=== PATIENT | female | born 1995 | race African-American/Black ===

== ENCOUNTER 2019-10-06 19:37 | Emergency (ER) | payer OTHER ==
[2019-10-06] MEDS ORDERED: DIPHENHYDRAMINE HCL 50 MG/ML VIAL IV ONE (20:23)
[2019-10-06] MEDS ORDERED: METOCLOPRAMIDE HCL INJ/PF 10 MG/2 ML SDV IV ONE (20:23)
--- NOTE | 2019-10-06 20:26 | ER Document Report ---
ED Medical Screen (RME) - General Chief Complaint: Nausea/Vomiting/Diarrhea Stated Complaint: VOMITING-13 WEEKS PREG Time Seen by Provider: 10/06/19 20:19 Mode of Arrival: Ambulatory Information source: Patient Notes: 23-year-old female presented to ED for complaint of nausea and vomiting since she was 5 or 6 weeks . She states she is 13 weeks . She states she been to her doctor multiple times and they have never given anything for the nausea and vomiting. She states she is in the area so she came to the emergency room because she has not been able to keep any food or fluid down for the last 4 days. 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 She states she is 3 para 2. She states she does live in [place]. I have greeted and performed a rapid initial assessment of this patient. A comprehensive ED assessment and evaluation of the patient, analysis of test results and completion of medical decision making process will be conducted by an additional ED providers. - Related Data Allergies/Adverse Reactions: No Known Allergies Allergy (Unverified 10/06/19 20:22) Physical Exam - Vital signs Vitals: Temp Pulse Resp BP Pulse Ox 98.6 F 70 16 123/58 L 100 10/06/19 19:50 10/06/19 19:50 10/06/19 19:50 10/06/19 19:50 10/06/19 19:50 Course - Vital Signs Vital signs: Temp Pulse Resp BP Pulse Ox 98.7 F 70 16 123/58 L 100 10/06/19 20:18 10/06/19 19:50 10/06/19 19:50 10/06/19 19:50 10/06/19 19:50
[2019-10-06 20:43] LABS: ABSOLUTE EOSINOPHILS # (AUTO) 0.1 10^3/uL (0.0-0.6); ABSOLUTE LYMPHOCYTES (AUTO) 2.1 10^3/uL (0.5-4.7); ABSOLUTE MONOCYTES (AUTO) 0.6 10^3/uL (0.1-1.4); ABSOLUTE NEUT (AUTO) 4.9 10^3/uL (1.7-8.2); BASOPHILS % (AUTO) 0.6 % (0-2); EOSINOPHILS % (AUTO) 1.8 % (0-6); HEMATOCRIT 34.4 % (36.0-47.0); HEMOGLOBIN 12.3 g/dL (12.0-15.5); LYMPHOCYTES % (AUTO) 26.5 % (13-45); MEAN CORPUSCULAR HEMOGLOBIN 32.2 pg (27.0-33.4); MEAN CORPUSCULAR HGB CONC 35.7 g/dL (32.0-36.0); MEAN CORPUSCULAR VOLUME 90 fl (80-97); MONOCYTES % (AUTO) 8.2 % (3-13); PLATELET COUNT 221 10^3/uL (150-450); RED BLOOD COUNT 3.81 10^6/uL (3.72-5.28); RED CELL DISTRIBUTION WIDTH 13.4 % (11.5-14.0); SEGMENTED NEUTROPHILS % (AUTO) 62.9 % (42-78); TOTAL CELLS COUNTED % (AUTO) 100 %; WHITE BLOOD COUNT 7.7 10^3/uL (4.0-10.5)
[2019-10-06 21:01] LABS: ALKALINE PHOSPHATASE 56 U/L (38-126); ANION GAP 9 (5-19); ASPARTATE AMINO TRANSFERASE 16 U/L (14-36); BILIRUBIN,TOTAL 0.5 mg/dL (0.2-1.3); BLOOD UREA NITROGEN 8 mg/dL (7-20); CALCIUM 9.5 mg/dL (8.4-10.2); CARBON DIOXIDE 22 mmol/L (22-30); CHLORIDE 103 mmol/L (98-107); GLUCOSE 76 mg/dL (75-110); POTASSIUM 3.9 mmol/L (3.6-5.0); TOTAL PROTEIN 7.5 g/dL (6.3-8.2)
[2019-10-06] MEDS: NORMAL SALINE 1000 ML 1,000 ML IV PRN ×2 (21:09→22:02)
[2019-10-06 22:10] LABS: APPEARANCE,URINE CLOUDY; BILIRUBIN,URINE NEGATIVE (NEGATIVE); COLOR,URINE AMBER; GLUCOSE, URINE NEGATIVE (NEGATIVE); KETONES,URINE 80 mg/dL (NEGATIVE); LEUKOCYTE ESTERASE,URINE LARGE (NEGATIVE); NITRITE,URINE NEGATIVE (NEGATIVE); PROTEIN,URINE 100 mg/dL (NEGATIVE)
--- NOTE | 2019-10-06 22:55 | ER Document Report ---
ED General - General Chief Complaint: Nausea/Vomiting/Diarrhea Stated Complaint: VOMITING-13 WEEKS PREG Time Seen by Provider: 10/06/19 20:19 Mode of Arrival: Ambulatory Information source: Patient - HPI Notes: 23-year-old female LMP 06/27/2019 presents with nausea and vomiting for several weeks worse for the last 4 days a/w intermittent lightheadness worse with moving from sitting to standing. Triage note says patient complaining of diarrhea which she denies, states she has been having normal bowel movements. Also says shortness of breath which patient also denies, says that she was trying to describe the dizziness and generalized weakness she has been feeling, but is not short of breath. Patient has been getting regular W[facility] TAXI OPERATOR care and has had a ultrasound this which confirmed a in the uterus. patient denies abdominal pain, pelvic pain, vaginal bleeding/discharge, dysuria, frequency, urgency, fever, prior abdominal surgeries, prior complications, headache, confusion, neck pain/stiffness, diarrhea/constipation/melena/bright red blood per rectum - Related Data Allergies/Adverse Reactions: No Known Allergies Allergy (Unverified 10/06/19 20:22) Past Medical History - General Information source: Patient - Social History Smoking Status: Never Smoker Family History: Reviewed & Not Pertinent Patient has homicidal ideation: No Review of Systems - Review of Systems Notes: REVIEW OF SYSTEMS: CONSTITUTIONAL : Denies fever, chills, or sweats. EENT: Denies recent cold/sinus symptoms, denies throat pain CARDIOVASCULAR: Denies chest pain, DUSTIN RESPIRATORY: Denies cough, denies shortness of breath. GASTROINTESTINAL: Denies abdominal pain, +nausea/vomiting. GENITOURINARY: Denies difficulty urinating, painful urination. FEMALE GENITOURINARY: Denies vaginal bleeding, vaginal discharge. MUSCULOSKELETAL: Denies neck pain, back pain. SKIN: Denies rash or skin lesions. HEMATOLOGIC : Denies easy bruising or bleeding. LYMPHATIC: Denies swollen, enlarged glands. NEUROLOGICAL: Denies headache, denies change in gait. PSYCHIATRIC: Denies anxiety or stress or depression. Physical Exam - Vital signs Vitals: Temp Pulse Resp BP Pulse Ox 98.6 F 70 16 123/58 L 100 10/06/19 19:50 10/06/19 19:50 10/06/19 19:50 10/06/19 19:50 10/06/19 19:50 - Notes Notes: PHYSICAL EXAMINATION: GENERAL: Well-appearing, well-nourished and in no acute distress. HEAD: Atraumatic, normocephalic. EYES: Pupils equal round and appropriate constriction, sclera anicteric, conjunctiva are normal. ENT: nares patent, dry mucous membranes. NECK: Normal range of motion, supple without lymphadenopathy LUNGS: Breath sounds clear to auscultation bilaterally and equal. No wheezes rales or rhonchi. HEART: Regular rate and rhythm without murmurs ABDOMEN: Soft, nontender, no guarding, no masses, no CVAT EXTREMITIES: Normal range of motion, no pitting or edema. No cyanosis. NEUROLOGICAL: Awake, alert, conversing appropriately, moves all extremities spontaneously. PSYCH: Normal mood, normal affect. SKIN: Warm, Dry, normal turgor, no rashes or lesions noted. Course - Re-evaluation Re-evalutation: 10/07/19 01:57 Presentation consistent with nausea vomiting of , patient with mildly dry mucous membranes but normal vital signs and very well-appearing. No indication to repeat ultrasound as patient has not had any pelvic symptoms and has had prior IUP confirmation. Checked electrolytes and CBC which did not have any emergent abnormalities and gave IV fluids and patient felt greatly improved, walked around the ED without any lightheadedness. Tolerated p.o. liquids in the ED. DC'd with doxylamine and pyridoxine, gave extensive return precautions, and instructed to follow-up with W[facility]I [facility]PERATOR which patient was in agreement with. - Vital Signs Vital signs: Temp Pulse Resp BP Pulse Ox 98.6 F 73 15 118/60 100 10/07/19 00:07 10/07/19 00:07 10/07/19 00:07 10/07/19 00:07 10/07/19 00:07 - Laboratory Result Diagrams: 10/06/19 20:30 10/06/19 20:30 Laboratory results interpreted by me: 10/06/19 10/06/19 10/06/19 20:30 20:30 21:41 Hct 34.4 L Sodium 133.6 L Beta HCG, Quant 75972.00 H Urine Protein 100 H Urine Ketones 80 H Urine Urobilinogen 2.0 H Ur Leukocyte Esterase LARGE H Discharge - Discharge Clinical Impression: Vomiting affecting Condition: Good Disposition: HOME, SELF-CARE Additional Instructions: You have been evaluated for vomiting and . This is likely a normal symptom of by if it continues to be severe you may have a condition called hyperemesis gravidarum. You need to be evaluated by her W[facility] TAXI OPERATOR to diagnose this. Follow-up with your WATER TAXI OPERATOR within 1 week. Return to the ED if you develop abdominal pain, pelvic pain, vaginal bleeding or discharge, fever, worsening vomiting and unable to keep down liquids, dizziness, fainting, shortness of breath, or any other worsening or alarming symptoms. You are being treated for asymptomatic bacteriuria in . This means that there are bacteria in your urine but you do not have any symptoms of an infection. This is treated in because bacteria in urine and can cause complications with your . Take all antibiotics as prescribed. Prescriptions: Doxylamine Succinate/Vit B6 [Doxylamine-Pyridoxine 10-10 mg] 1 each PO QHS PRN #10 tablet. PRN Reason: Cephalexin Monohydrate [Keflex 500 mg Capsule] 500 mg PO BID 7 Days #14 capsule
[2019-10-07] MEDS ORDERED: CEPHALEXIN 500 MG CAPSULE PO ONE (00:01)
[2019-10-07 00:54] VITALS: BP 118/60
== END 2019-10-07 00:14 | disposition home or self-care (01) ==
LOC: ER 19:37
DX: O21.9 Vomiting of pregnancy, unspecified (principal); R19.7 Diarrhea, unspecified; Z3A.01 Less than 8 weeks gestation of pregnancy
CPT/HCPCS: 99284; 96361; 96374; 96375; 36415; 84702; 83690; 85025; 80053; 81001; J1200; J2765; J7030